=== PATIENT | male | born 1950 | race Caucasian/White ===

== ENCOUNTER 2017-05-26 08:42 | Emergency (ER) | payer MEDICARE ==
[2017-05-26] MEDS ORDERED: Ketorolac 30 MG/ML SDV IM ONE (09:08)
--- NOTE | 2017-05-26 09:14 | EDM.PDOC ---
ED HPI GENERAL MEDICAL PROBLEM - General Chief Complaint: Upper Extremity Injury/Pain Stated Complaint: LT SHOULDER PAIN Time Seen by Provider: 05/26/17 09:09 Source of Information: Reports: Patient - History of Present Illness INITIAL COMMENTS - FREE TEXT/NARRATIVE: HISTORY AND PHYSICAL: History of present illness: []Patient was at [place] over the weekend on leaving he loaded up a 100 pound suitcase into the back of truck which began pain in his left shoulder girdle initially rating 3 out of 10 worsened by movement. He then the following day was loading up more gear, into the back of the pickup truck which sent him into "spasm "he now refuses to move his left shoulder due to pain, I can reproduce pain with palpation of the thoracic paraspinous muscles as well as infraspinatus and essentially the whole left trapezius distribution and even pectoralis major No fever nausea vomiting chills sweats no chest pain shortness of breath headache dizziness or palpitation no bowel or urine symptoms, patient has pain with deep inspiration Review of systems: As per history of present illness and below otherwise all systems reviewed and negative. Past medical history: As per history of present illness and as reviewed below otherwise noncontributory. Surgical history: As per history of present illness and as reviewed below otherwise noncontributory. Social history: No reported history of drug or alcohol abuse. Family history: As per history of present illness and as reviewed below otherwise noncontributory. Physical exam: HEENT: Atraumatic, normocephalic, pupils reactive, negative for conjunctival pallor or scleral icterus, mucous membranes moist, throat clear, neck supple, nontender, trachea midline. Lungs: Clear to auscultation, breath sounds equal bilaterally, chest nontender. Heart: S1S2, regular, negative for clicks, rubs, or JVD. Abdomen: Soft, nondistended, nontender. Negative for masses or hepatosplenomegaly. Negative for costovertebral tenderness. Pelvis: Stable nontender. Genitourinary: Deferred. Rectal: Deferred. Extremities: Atraumatic, negative for cords or calf pain. Neurovascular unremarkable. Left shoulder exam deferred by patient due to pain Neuro: Awake, alert, oriented. Cranial nerves II through XII unremarkable. Cerebellum unremarkable. Motor and sensory unremarkable throughout. Exam nonfocal. Diagnostics: []Chest 1 view Left shoulder complete Therapeutics: []Toradol 30 mg IM Toradol Flexeril Impression: []Muscle spasm left shoulder girdle Definitive disposition and diagnosis as appropriate pending reevaluation and review of above. Left Shoulder Pain Score (Numeric/FACES): 10 - Related Data Allergies Allergy/AdvReac Type Severity Reaction Status Date / Time No Known Allergies Allergy Verified 05/26/17 08:55 Home Meds: Home Meds Atenolol [Atenolol] 25 mg PO DAILY 05/26/17 [History] Levothyroxine 25 mcg PO ACBREAKFAST 05/26/17 [History] Lisinopril [Lisinopril] 10 mg PO DAILY 05/26/17 [History] atorvaSTATin [Lipitor] 20 mg PO BEDTIME 05/26/17 [History] Past Medical History Cardiovascular History: Reports: High Cholesterol, Hypertension Social & Family History - Tobacco Use Smoking Status *Q: Never Smoker Second Hand Smoke Exposure: No - Caffeine Use Caffeine Use: Reports: Coffee - Recreational Drug Use Recreational Drug Use: No Review of Systems - Review of Systems Review Of Systems: ROS reveals no pertinent complaints other than HPI. ED EXAM, GENERAL - Physical Exam Exam: See Below Course - Vital Signs Last Recorded V/S: Last Vital Signs Temp 36.3 C 05/26/17 08:57 Pulse 58 L 05/26/17 08:57 Resp 18 05/26/17 08:57 BP 150/82 H 05/26/17 08:57 Pulse Ox 95 05/26/17 08:57 - Orders/Labs/Meds Meds: Medications Discontinued Medications Generic Name Dose Route Start Last Admin Trade Name Freq PRN Reason Stop Dose Admin Ketorolac Tromethamine 30 mg 05/26/17 09:08 05/26/17 09:23 Toradol IM 05/26/17 09:09 30 mg ONETIME ONE Administration Departure - Departure Time of Disposition: 11:18 Disposition: Home, Self-Care 01 Condition: Good Clinical Impression: Muscle spasm - Discharge Information Forms: ED Department Discharge Additional Instructions: Medication as prescribed No driving on this medication As 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 This information is to outline your options for follow-up care. We provide all patients seen in our emergency department with a follow-up referral. The need for follow-up, as well as the timing and circumstances, are variable depending upon the specifics of your emergency department visit. If you don't have a primary care physician on staff, we will provide you with a referral. We always advise you to contact your personal physician following an emergency department visit to inform them of the circumstance of the visit and for follow-up with them and/or the need for any referrals to a consulting specialist. The emergency department will also refer you to a specialist when appropriate. This referral assures that you have the opportunity for follow-up care with a specialist. All of these measure are taken in an effort to provide you with optimal care, which includes your follow-up. Under all circumstances we always encourage you to contact your private physician who remains a resource for coordinating your care. When calling for follow-up care, please make the office aware that this follow-up is from your recent emergency room visit. If for any reason you are refused follow-up, please contact the [facility] emergency department at and asked to speak to the emergency department charge nurse.
--- NOTE | 2017-05-26 11:05 | CR ---
EXAM DATE: 05/26/17 PATIENT'S AGE: 66 Patient: NICOLE NOLAN Facility: [place], [place] Site . Site : 1950 Study: XRay Shoulder Left [id number]/8/2017 10:38:57 AM Ordering Physician: Bridger Robledo Final Report: INDICATION: Pain. INDICATION: Shoulder pain. TECHNIQUE: Left shoulder, three views. COMPARISON: None FINDINGS: Bones: Alignment is normal. No fractures or bone lesions. Joint spaces: Osteophytic spurring at the left AC joint. AC/CC intervals are normal. Soft tissues: Unremarkable. IMPRESSION: 1. Degenerative changes at the left AC joint. 2. No acute bone abnormality. 3. No dislocation on the transscapular Y radiograph. Dictated by James Early MD @ 05/26/2017 10:46:55 AM Dictated by: James Early MD @ 05/26/2017 10:47:12 (Electronic Signature) Report Signed by Proxy. UNITED HEALTH SERVICESKen
--- NOTE | 2017-05-26 11:06 | CR ---
EXAM DATE: 05/26/17 PATIENT'S AGE: 66 Patient: NICOLE NOLAN Facility: [place], [place] Site . Site : 1950 Study: XRay Chest [id number]/8/2017 10:39:25 AM Ordering Physician: Bridger Robledo Final Report: INDICATION: pain/shortness of breath Indication: Pain. Shortness of breath. Technique: Chest one view portable. Comparison: None. Findings: Surgical clips in the left upper quadrant. Partially visualized ACDF changes in the lower cervical spine. Atelectasis at the left lung base. Low lung volumes. No acute airspace disease. Impression: Low lung volumes, with atelectasis at the left lung base. Dictated by James Early MD @ 05/26/2017 10:48:44 AM Dictated by: James Early MD @ 05/26/2017 10:48:52 (Electronic Signature) Report Signed by Proxy. M[facility] IMOGEN[facility]ASS[facility] HOSPITALKen
[2017-05-26 11:21] VITALS: BP 124/83
== END 2017-05-26 11:36 | disposition home or self-care (01) ==
LOC: MW.ED 08:42
DX: M62.838 Other muscle spasm (principal); I10 Essential (primary) hypertension; E78.00 Pure hypercholesterolemia, unspecified; Z79.899 Other long term (current) drug therapy
CPT/HCPCS: 71010; 73030; 96372; 99283; J1885; 99284